=== PATIENT | male | born 1960 | race African-American/Black ===

== ENCOUNTER 2016-11-19 13:28 | Inpatient (IN) | payer BC, OTHER ==
[~2016-11-19] VITALS: Ht 182.9 cm; Wt 114.8 kg
--- NOTE | ~2016-11-19 | CATHLAB ---
[facility] [place] [address] INVASIVE PROCEDURE REPORT Name: DAMIAN SWAIN JR Room #: 213-P [facility]#: [id number] Admission: 11/19/16 Attend Phys: Eliel Puri, Discharge: 11/21/16 Date of : 56 Date of Service: 11/23/16 1329 Report #: [id number] THIS REPORT FOR: //name// APPROVED REPORT Patient Details The patient is a 56 year-old male Procedure Narrative The Right Groin^ was infiltrated with 1% Lidocaine subcutaneous anesthesia. A PINNACLE 6FR Sheath #[id number] sheath was inserted into the RFA^. Coronary angiography was performed using coronary diagnostic catheters. The right coronary system was accessed and visualized with a EDRC catheter. The left coronary system was accessed and visualized with a JL4 catheter. The left ventricle was accessed and visualized with a PIGTAIL catheter. The patient tolerated the procedure well and there were no complications associated with the procedure. Intraoperative Conscious Sedation Sedation start time: 8.19 Case end Time: 8.47 Fentanyl 50.0 mcg Versed 2.0 mg Fluoro Time: 5.04 minutes Dose: 1191 mGy Contrast Type and Amount: Omnipaque 150 ml Hemodynamics The aortic pressure is 124/75 mmHg with a mean of 95 mmHg. The left ventricular pressure is 151/10 mmHg with a mean of mmHg. The left ventricular end diastolic pressure is 35 mmHg. There was no gradient across the aortic valve upon pullback. Pullback from the left ventricle to the aorta revealed no gradient across the aortic valve. PCI Technique Lesion Percutaneous coronary intervention was performed on the mid right coronary artery. A LAUNCHER 6FR 3D #[id number] Guide Catheter was used to engage the RCA ostium. A Luge Wire .014 x 182CM #[id number] Interventional Guidewire was used to cross the lesion. BALLOON DILATION A Balloon catheter Sprinter OTW 2.5 x 12 #[id number] was inserted and inflated up to 12.00atm for 22seconds. Additional Inflation: 12.00atm [facility] [address] [place] [address] INVASIVE PROCEDURE REPORT Name: BRYNNDAMIAN Room #: 213-P [facility]#: [id number] Admission: 11/19/16 Attend Phys: Eliel Puri, Discharge: 11/21/16 Date of : 56 Date of Service: 11/23/16 1329 Report #: [id number] for 19seconds. STENT DEPLOYMENT A drug-eluting stent RESOLUTE OTW 2.75 X 12 #[id number] was inserted and inflated up to 12.00atm for 22seconds. Conclusion #1 successful PTCA stent drug-eluting mid RCA 90% lesion tandem to 0% with a 25 resolute drug-eluting stent postdilated 2.7 mm in size no residual EDER grade 3 flow #2 left main free of disease #3 LAD extends around apex with an eccentric 3040% proximal lesion otherwise well-preserved vessel #4 circumflex marginal nondominant but large tortuous with a 50% proximal lesion giving rise to large OM system distally #5 normal left ventricular size and systolic function of 55-60% #6 abdominal aorta is intact no aneurysm single renal arteries and iliac mild plaquing. Recommendations and plan aggressive risk factor modification will need dual antiplatelet therapy 6-12 months. No lifting for 48 hours no MRI or dental work for 3 months. Tub Jacuzzi her leg for a week. Follow-up will be 3 months in my office <ELECTRONICALLY SIGNED> By: Eliel Puri MD, FACC 11/23/16 1329 28 28 Eliel Puri MD, FACC /INF
--- NOTE | ~2016-11-19 | D ---
[facility] [place] [address] DISCHARGE SUMMARY Name: DAMIAN SWAIN Room #: 213-P [facility] IN M.R.#: [id number] Admission: 11/19/16 Attend Phys: Eliel Puri MD, Discharge: Date of : 56 Report #: [id number] THIS REPORT FOR: //name// CC: Eliel Monge MD [facility] COURSE: The patient is a 56-year-old male who had a brief episode of chest pain and then subsequently had an elevated troponin up to 5-6 range, consistent with a non-STEMI, but no acute changes. He was taken to the catheterization lab, which revealed patency of his prior circumflex stents and mild LAD disease. He had a high-grade tandem lesions in the mid and mid distal RCA. I successfully dilated and stented, which was a 2.75 x 22 Resolute drug-eluting stent across both lesions in the mid RCA, which was a dominant vessel and postdilated that up to 3.1 mm in size, yielding 0% residual EDER grade 3 flow. LV function was normal. Heparin, Integrilin and Effient were utilized. He tolerated it well, resolution of subtle EKG changes, no chest pain. He is feeling well, he is up and ambulating without any issues. Creatinine is 1.0, potassium 4.1. Troponin was 3.3 this morning, of course initially marcin to 5.99. Lipids are favorable. His LDL was 62. His total cholesterol 125. 125. H and H is 14 and 41.4. He will be discharged on aspirin, full aspirin and Effient and then after a month, we will decrease to a baby aspirin with the Effient, so he can only take Livalo, Livalo 4 mg, Protonix, Bystolic 5, Zetia 10, lisinopril 10. No lifting for 48 hours. No lying in tub, Jacuzzi or Castillo for a week. We will follow up in 3 months in my office. DISCHARGE DIAGNOSES: 1. Non-ST elevation myocardial infarction. 2. Coronary artery disease with successful PTCA stent of high-grade mid RCA lesions and circumflex stents patent. LAD, mildly diseased, preserved LV function. 3. Hypertension. 4. Hypercholesterolemia. 5. Mild ischemic cardiomyopathy with a very limited inferior lateral infarct from 2009. I should clarify circumflex stents were placed in 2009 and 2012. Thank you for asking me to assist in the care of this patient. By: 0742 0928 Eliel Puri MD, FACC /nt
--- NOTE | ~2016-11-19 | 2DMMODE ---
[facility] [address] [place] [address] 2 D/M-MODE ECHOCARDIOGRAM Name: DAMIAN SWAIN Room #: 213-P [facility] IN M.R.#: [id number] Admission: 11/19/16 Attend Phys: Eliel Puri, Discharge: Date of : 56 Date of Service: 11/20/16 1123 Report #: [id number] THIS REPORT FOR: //name// APPROVED REPORT Study performed: 11/20/2016 09:28:43 EXAM: Comprehensive 2D, Doppler, and color-flow Echocardiogram Patient Location: [facility] Room #: 213 Status: routine Other Information Study Quality: Adequate Technically limited study due to limited mobility. Patient status post cath. Indications Chest pain; Status post heart cath with stent placement. Hx: [place], stents, ISCM 2D Dimensions RVDd: 37.87 mm LVEF(%): 46.21 (>50%) IVSd: 13.23 (7-11mm) LVOT Diam: 20.80 (18-24mm) LVDd: 49.48 mm PWd: 9.71 (7-11mm) Ascending Ao: 33.39 (22-36mm) LVDs: 38.03 (25-40mm) Aortic Root: 33.49 mm Minor's LVEF: 46.21 % Volumes Left Atrial Volume (Systole) Single Plane 4CH: 52.79 mL Single Plane 2CH: 70.29 mL LA ESV Index: 28.00 mL/m2 Aortic Valve AoV Peak Bishop.: 1.45 m/s AO Peak Gr.: 8.38 mmHg LVOT Max P.61 mmHg LVOT Max V: 1.07 m/s LOYD Vmax: 2.52 cm2 Mitral Valve E/A Ratio: 1.4 MV Decel. Time: 178.65 ms MV E Max Bishop.: 1.11 m/s [facility] [place] [address] 2 D/M-MODE ECHOCARDIOGRAM Name: DAMIAN SAWIN Room #: 213-P [facility] IN ..#: [id number] Admission: 11/19/16 Attend Phys: Eliel Puri, Discharge: Date of : 56 Date of Service: 11/20/16 1123 Report #: [id number] A Bishop.: 0.81 m/s MV PHT: 51.81 ms IVRT: 69.20 ms Pulmonary Valve PV Peak Bishop.: 1.39 m/s PV Peak Gr.: 7.75 mmHg Pulmonary Vein P Vein S: 0.36 m/s P Vein A: 0.30 m/s P Vein D: 0.34 m/s P Vein A Dur.: 129.2 msec P Vein S/D Ratio: 1.06 Tricuspid Valve TR Peak Bishop.: 1.91 m/s TR Peak Gr.: 14.65 mmHg Left Ventricle The left ventricle is normal size. Mild septal hypertrophy. Left ventricular systolic function is mildly decreased. LVEF is 45%. Moderate diastolic dysfunction is present (pseudonormal filling). Right Ventricle The right ventricle is normal size. The right ventricular systolic function is normal. Atria The left atrium size is normal. The right atrium size is normal. Aortic Valve The aortic valve is normal in structure. Trace aortic regurgitation. There is no aortic valvular stenosis. Mitral Valve The mitral valve is normal in structure. Trace mitral regurgitation. No evidence of mitral valve stenosis. Tricuspid Valve The tricuspid valve is normal in structure. Trace tricuspid regurgitation. Estimated PAP is 15mmHg plus the right atrial pressure. Pulmonic Valve The pulmonary valve is normal in structure. Trace pulmonic regurgitation. [address] [address] 2 D/M-MODE ECHOCARDIOGRAM Name: DAMIAN SWAIN JR Room #: 213-P [facility] IN .#: [id number] Admission: 11/19/16 Attend Phys: Eliel Puri, Discharge: Date of : 56 Date of Service: 11/20/16 1123 Report #: [id number] Great Vessels The aortic root is normal in size. The ascending aorta is normal in size. IVC is not well visualized. Pericardium There is no pericardial effusion. <Conclusion> The left ventricle is normal size. Left ventricular systolic function is mildly decreased. LVEF is 45%. The aortic valve is normal in structure. Trace aortic regurgitation. The mitral valve is normal in structure. Trace mitral regurgitation. The tricuspid valve is normal in structure. Trace tricuspid regurgitation. Estimated PAP is 15mmHg plus the right atrial pressure. The pulmonary valve is normal in structure. Trace pulmonic regurgitation. <ELECTRONICALLY SIGNED> By: Fausto Dickerson MD 11/20/16 1123 1123 112 Fausto Dickerson MD /INF
--- NOTE | ~2016-11-19 | EKG ---
[address] [address] ELECTROCARDIOGRAM REPORT Name: DAMIAN SWAIN Room #: 213-[facility] IN M.R.#: [id number] Admission: 11/19/16 Attend Phys: Eliel Puri MD, Discharge: 11/21/16 Date of : 56 Report #: [id number] THIS REPORT FOR: //name// [facility] Test Date: 2016-11-20 Test Time: 10:19:59 Pat Name: DAMIAN SWAIN Department: Room: 213 P Gender: M Pattern Developer: Emilio THAKKAR : 1960 Requested By: Eliel Puri Order Number: [id number] MD: Sean Menchaca Measurements Intervals [place] Rate: 54 P: 36 HI: 162 QRS: -14 QRSD: 83 T: -6 QT: 428 QTc: 406 Interpretive Statements Sinus bradycardia Borderline ST elevation, anterolateral leads Compared to ECG 11/20/2016 06:12:22 No significant change was found Electronically Signed On 11-22-2016 7:07:34 CDT by Sean Menchaca [email or web address] <ELECTRONICALLY SIGNED> By: Sean Menchaca MD, [facility] 11/22/16 0707 1019 1019 Sean Menchaca MD, [facility] /EPI
--- NOTE | ~2016-11-19 | EKG ---
[place] [address] [facility] [facility] [place] [address] ELECTROCARDIOGRAM REPORT Name: DAMIAN SWAIN Room #: 213-[facility] IN M.R.#: [id number] Admission: 11/19/16 Attend Phys: Eliel Puri MD, Discharge: 11/21/16 Date of : 56 Report #: [id number] THIS REPORT FOR: //name// [facility] Test Date: 2016-11-21 Test Time: 06:39:02 Pat Name: DAMIAN BERRIOSER Department: Room: 213 Gender: M Cashier Ticket Selling: Gr : 1960 Requested By: Eliel Puri Order Number: [id number] MD: Sean Menchaca Measurements Intervals [place] Rate: 55 P: 0 ND: 155 QRS: -14 QRSD: 96 T: -6 QT: 412 QTc: 394 Interpretive Statements Sinus rhythm Low voltage, precordial leads Borderline T abnormalities Baseline wander in lead(s) V2 Compared to ECG 11/20/2016 06:12:22 Repolarization abnormality no longer present Electronically Signed On 11-22-2016 7:46:11 CDT by Sean Menchaca [email or web address] <ELECTRONICALLY SIGNED> By: Sean Menchaca MD, [facility] 11/22/16 0746 0639 0639 Sean Menchaca MD, [facility] /EPI
--- NOTE | ~2016-11-19 | EKG ---
[place] [address] [address] [address] ELECTROCARDIOGRAM REPORT Name: DAMIAN SWAIN Room #: 213-P [facility] M.R.#: [id number] Admission: 11/19/16 Attend Phys: Eliel Puri MD, Discharge: Date of : 56 Report #: [id number] THIS REPORT FOR: //name// [facility] Test Date: 2016-11-20 Test Time: 06:12:22 Pat Name: DAMIAN SWAIN Department: Room: 213 P Gender: M Maintenance Director: aye : 1960 Requested By: Elizabeth Reeves Order Number: [id number] MD: Sean Menchaca Measurements Intervals [place] Rate: 58 P: -7 TX: 165 QRS: -7 QRSD: 83 T: 3 QT: 421 QTc: 414 Interpretive Statements Sinus rhythm Minimal ST elevation, anterior leads Baseline wander in lead(s) V2 No previous ECG available for comparison Electronically Signed On 11-20-2016 9:29:17 CDT by Sean Menchaca [email or web address] <ELECTRONICALLY SIGNED> By: Sena Menchaca MD, [facility] 11/20/1629 1 1 Sean Menchaca MD, [facility] /EPI
--- NOTE | ~2016-11-19 | EKG ---
[place] [address] [facility] [employer] [place] [address] ELECTROCARDIOGRAM REPORT Name: DAMIAN SWAIN Room #: 213-P [facility] M.R.#: [id number] Admission: 11/19/16 Attend Phys: Eliel Puri MD, Discharge: Date of : 56 Report #: [id number] THIS REPORT FOR: //name// [facility] ED Test Date: 2016-11-19 Test Time: 13:38:47 Pat Name: DAMIAN SWAIN Department: Room: 213 Gender: M Hands Parter: Aspen PIKE : 1960 Requested By: Elizabeth Reeves Order Number: [id number] MD: Sean Menchaca Measurements Intervals [place] Rate: 64 P: 7 NV: 149 QRS: -20 QRSD: 89 T: -6 QT: 386 QTc: 399 Interpretive Statements Sinus rhythm Borderline T abnormalities, inferior leads No previous ECG available for comparison Electronically Signed On 11-20-2016 9:26:36 CDT by Sean Menchaca [email or web address] <ELECTRONICALLY SIGNED> By: Sean Menchaca MD, [facility] 11/20/16 0926 1338 37 Sean Menchaca MD, FACC /EPI
--- NOTE | ~2016-11-19 | H ---
[facility] [place] [address] HISTORY AND PHYSICAL Name: BRYNNDAMIAN NAPIER Room #: 213-P [facility] Sparkle [facility]#: [id number] Admission: 11/19/16 Attend Phys: Eliel Puri MD, Discharge: Date of : 56 Report #: [id number] THIS REPORT FOR: //name// CC: Eliel Monge DATE OF SERVICE: 11/19/2016 HISTORY OF PRESENT ILLNESS: The patient is a 56-year-old male well known to myself, stable coronary disease and had stents placed in 2009 into the right coronary artery and then subsequently in 2012 I placed stents to the circumflex artery with a 40% right mild LAD disease. He has done well and followed up regularly in the office. He has lost weight, he has been exercising. He remains active. Today, he comes in with chest pain, which he had. 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 While he was standing in the water had significant chest discomfort, initially started in the epigastric area and became slightly diaphoretic but no shortness of breath. It was 5-6/10, worse and then subsequently it resolved after his had called the ambulance and he had an aspirin. It went away on its own. He has had no history of this. He exercises early as last couple days ago without any change in exercise tolerance. There are no associated EKG changes. Unfortunately the first troponin was 0.04 and the 2nd was 0.47, although is still indeterminate, but questioning why this would have risen. Pain free as I stated. He feels well. He was improved with the GI cocktail. He has been compliant with his medications which have been aspirin, lisinopril 10, Bystolic 5, Zetia 10, Livalo 4. He is intolerant of all statins except Livalo and Protonix 40, which he may have missed this morning and glucosamine. He no longer takes Effient. PAST MEDICAL HISTORY: Positive for coronary artery disease with stents in 2009 and 2012, rotator cuff surgery, right knee surgery, bronchitis, hypertension, hypercholesterolemia and mild ischemic cardiomyopathy with limited infarct back in 2009. ALLERGIES: No known drug allergies. SOCIAL HISTORY: He works. He is . No current alcohol or tobacco. Social alcohol user. FAMILY HISTORY: Strongly positive. Father had an infarct in his 50s. PHYSICAL EXAMINATION: VITAL SIGNS: Blood pressure 130/62, pulse 70. HEENT: Eyes reveal xanthelasmas. Pharynx is clear. NECK: Shows preserved upstrokes without JVD or bruits. LUNGS: Clear. CARDIOVASCULAR: Regular rate and rhythm, S1, S2. [facility] [address] [place] [address] HISTORY AND PHYSICAL Name: BRYNNDAMIAN Room #: 213-P [facility] Sparkle M.R.#: [id number] Admission: 11/19/16 Attend Phys: Eliel Puri MD, Discharge: Date of : 56 Report #: [id number] ABDOMEN: Slightly tender in the midepigastric area. EXTREMITIES: Reveal no edema. Distal pulses were intact. MUSCULOSKELETAL: No gross joint deformity. NEUROLOGIC: Intact. ASSESSMENT: 1. Chest pain with an equivocal troponin. 2. Coronary artery disease with history of right coronary artery and circumflex stents, last intervention in 2012. 3. I should clarify it looks like his initial stents were placed in the mid circumflex. These were stents and these were widely patent. There was a distal circumflex stent placed in 2012. The right coronary artery had a 40-50% mid vessel lesion. The left anterior descending had mild disease. This all dates back to April of 2012. Hypertension, hypercholesterolemia, mild ischemic cardiomyopathy. 4. Suspected reflux, GI etiology. RECOMMENDATIONS AND PLAN: We will continue with Protonix, bland diet. We will repeat troponin and EKG in the a.m. If it would be higher, then would proceed to the clay processing labourer to delineate anatomy. If not would consider stress echo. I believe his last stress test was March in the office, but I will confirm in the morning. He is pain free and comfortable. There have been no anginal type symptoms leading up to this. He has been exercising. It does not seem likely that this would be cardiac, but may need objective testing if the troponins do not further elevate. Discussed with the patient and . By: 2131 3049 Eliel Puri MD, FACC /nt
[~2016-11-19 13:28] MED LIST: ADULT LOW DOSE81 MG PO; ASPIRIN325 PO; BYSTOLIC 5 MG5 M1 PO; EFFIENT10 MG PO; FISH OIL 1,0001 EAC5 PO; GARLIC OIL1 EACH PO; GLUCOSAMINE &1 EAC1 PO; IBUPROFEN 200200 M1 PO; LIPITOR80 MG PO; LIVALO4 MG PO; LOPRESSOR25 PO; MULTIPLE VITAM1 EAC3 PO; NORCO 5-325 TA1 EACH PO; PANTOPRAZOLE SO40 MG PO; VIT C 500 MG-E500 MG PO; VITAMIN C + RO500 MG PO; VYTORIN 10-801 EACH PO; ZESTRIL10 MG PO; ZETIA10 MG PO
[2016-11-19 14:01] LABS: ABSOLUTE NEUTROPHILS 4.4 thou/uL (1.4-8.2); BASOPHILS 0.7 % (0.0-2.0); EOSINOPHILS 1.6 % (0.0-3.0); HEMATOCRIT 42.8 % (42.0-52.0); LYMPHOCYTES 18.9 % (24.0-44.0); MCH 31.4 pg (26.0-34.0); MCV 89.7 fL (80.0-100.0); PLATELET COUNT 239 thou/uL (150-400); POLYS 72.8 % (36.0-66.0); RBC 4.77 mil/uL (4.50-6.00); RDW 13.5 % (10.5-14.5); WBC 6.1 thou/uL (4.0-11.0)
[2016-11-19 14:02] LABS: MANUAL DIFF NO
[2016-11-19 14:07] LABS: ANION GAP 8 mmol/L (7-16); BUN 11 mg/dL (7-18); CALCIUM 9.4 mg/dL (8.5-10.1); CHLORIDE 105 mmol/L (98-107); CO2 27 mmol/L (21-32); CREATININE 1.2 mg/dL (0.7-1.3); GLUCOSE 139 mg/dL (74-106); POTASSIUM 4.5 mmol/L (3.5-5.1); SODIUM 140 mmol/L (136-145)
[2016-11-19 14:14] LABS: ALBUMIN 4.1 g/dL (3.4-5.0); ALKALINE PHOSPHATASE 69 U/L (46-116); SGOT 21 U/L (15-37); SGPT 27 U/L (30-65); TOTAL BILIRUBIN 0.4 mg/dL (<0.1-1.0); TROPONIN-I < 0.04 ng/mL (<0.04-0.07)
[2016-11-19 18:46] VITALS: BP 121/61
[2016-11-19 19:49] VITALS: BP 130/63
[2016-11-19 23:29] VITALS: BP 119/59
[2016-11-20] VITALS (10 sets, daily range): BP systolic 101–130; BP diastolic 54–72
[2016-11-20 07:25] LABS: CHOLESTEROL 125 mg/dL (<200); HDL CHOLESTEROL 38 mg/dL (>40); LDL CHOLESTEROL 62 mg/dL (<100); TC:HDL 3.3 Ratio (Not establshd); TRIGLYCERIDE 125 mg/dL (<150); VLDL 25 mg/dL (<40)
[2016-11-21 03:45] LABS: HEMATOCRIT 41.4 % (42.0-52.0); HEMOGLOBIN 14.7 gm/dL (14.0-18.0); MCH 31.6 pg (26.0-34.0); MCHC 35.5 g/dL (28.0-37.0); RBC 4.66 mil/uL (4.50-6.00); RDW 13.6 % (10.5-14.5); WBC 6.9 thou/uL (4.0-11.0)
[2016-11-21 03:48] VITALS: BP 116/61
[2016-11-21 03:59] LABS: CALCIUM 8.7 mg/dL (8.5-10.1); POTASSIUM 4.1 mmol/L (3.5-5.1)
[2016-11-21 04:03] LABS: TROPONIN-I 3.31 ng/mL (<0.04-0.07)
[2016-11-21] MEDS ORDERED: ASPIRIN325 PO (07:38)
[2016-11-21 07:40] VITALS: BP 116/69
[2016-11-21 09:05] VITALS: BP 116/69
== END 2016-11-21 10:40 | disposition home or self-care (01) | DRG 247 ==
LOC: ER 13:28 → EROBS 16:23 → 2N 16:23
PROVIDERS: Internal Medicine Cardiovascular Disease; Physician Assistant
PROC: B2151ZZ Fluoroscopy of Left Heart using Low Osmolar Contrast (ICD-10-PCS; principal; 2016-11-21)
PROC: 4A023N7 Measurement of Cardiac Sampling and Pressure, Left Heart, Percutaneous Approach (ICD-10-PCS; principal; 2016-11-21)
PROC: B2111ZZ Fluoroscopy of Multiple Coronary Arteries using Low Osmolar Contrast (ICD-10-PCS; principal; 2016-11-21)
PROC: 027034Z Dilation of Coronary Artery, One Artery with Drug-eluting Intraluminal Device, Percutaneous Approach (ICD-10-PCS; principal; 2016-11-21)
DX: I21.4 Non-ST elevation (NSTEMI) myocardial infarction (principal); I25.10 Atherosclerotic heart disease of native coronary artery without angina pectoris; I10 Essential (primary) hypertension; I25.5 Ischemic cardiomyopathy; E78.00 Pure hypercholesterolemia, unspecified; Z95.5 Presence of coronary angioplasty implant and graft; Z79.899 Other long term (current) drug therapy; Z82.49 Family history of ischemic heart disease and other diseases of the circulatory system
CPT/HCPCS: 10081

== ENCOUNTER 2017-03-11 05:14 | Emergency (ER) | payer BC, OTHER ==
[~2017-03-11] VITALS: Ht 182.9 cm; Wt 114.3 kg
[2017-03-11] MEDS ORDERED: MEN'S DAILY FO1 EAC1 PO (05:23)
[2017-03-11 06:19] LABS: URINE BILIRUBIN NEGATIVE (Negative); URINE BLOOD NEGATIVE (Negative); URINE COLOR YELLOW; URINE GLUCOSE-RANDOM* NEGATIVE (Negative); URINE KETONES NEGATIVE (Negative); URINE LEUKOCYTES-REFLEX NEGATIVE (Negative); URINE PROTEIN (DIPSTICK) NEGATIVE (Negative); URINE SPECIFIC GRAVITY <= 1.005 (1.003-1.035); URINE UROBILINOGEN 0.2 E.U./dl (0.2-1.0)
[2017-03-11 06:41] LABS: ABSOLUTE NEUTROPHILS 5.3 thou/uL (1.4-8.2); BASOPHILS 0.8 % (0.0-2.0); EOSINOPHILS 4.2 % (0.0-3.0); HEMATOCRIT 44.6 % (42.0-52.0); HEMOGLOBIN 15.3 gm/dL (14.0-18.0); LYMPHOCYTES 19.3 % (24.0-44.0); MCH 30.8 pg (26.0-34.0); MCHC 34.2 g/dL (28.0-37.0); MONOCYTES 5.6 % (1.0-8.0); PLATELET COUNT 203 thou/uL (150-400); POLYS 70.1 % (36.0-66.0); RBC 4.96 mil/uL (4.50-6.00); RDW 13.3 % (10.5-14.5); WBC 7.6 thou/uL (4.0-11.0)
[2017-03-11 06:47] LABS: MANUAL DIFF NO
[2017-03-11 06:49] LABS: CALCIUM 8.7 mg/dL (8.5-10.1); CREATININE 1.1 mg/dL (0.7-1.3); POTASSIUM 3.5 mmol/L (3.5-5.1)
[2017-03-11 06:55] LABS: ALBUMIN 3.6 g/dL (3.4-5.0); TOTAL BILIRUBIN 0.4 mg/dL (<0.1-1.0); TOTAL PROTEIN 7.3 g/dL (6.4-8.2)
[2017-03-11] MEDS ORDERED: BENTYL 20 MG TA20 M1 PO (07:14)
[2017-03-11 07:19] VITALS: BP 114/60
== END 2017-03-11 07:25 | disposition home or self-care (01) ==
LOC: ER 05:14
PROVIDERS: Emergency Medicine
DX: R10.9 Unspecified abdominal pain (principal); R19.7 Diarrhea, unspecified; F10.99 Alcohol use, unspecified with unspecified alcohol-induced disorder; J40 Bronchitis, not specified as acute or chronic; I25.2 Old myocardial infarction; E78.00 Pure hypercholesterolemia, unspecified

== ENCOUNTER 2018-03-30 17:38 | Emergency (ER) | payer BC, OTHER ==
[~2018-03-30] VITALS: Ht 182.9 cm; Wt 117.9 kg
[~2018-03-30 17:38] MED LIST changes: +BENTYL 20 MG TA20 M1 PO; +MEN'S DAILY FO1 EAC1 PO
[2018-03-30 19:08] VITALS: BP 121/63
[2018-03-30] MEDS ORDERED: VITAMIN B12 PO (19:13)
[2018-03-30] MEDS ORDERED: VITAMIN D400 UNIT PO (19:14)
[2018-03-30] MEDS ORDERED: MOBIC7.5 MG PO (20:26)
== END 2018-03-30 20:45 | disposition home or self-care (01) ==
LOC: ER 17:38
DX: S89.91XA Unspecified injury of right lower leg, initial encounter (principal); M25.461 Effusion, right knee; I25.10 Atherosclerotic heart disease of native coronary artery without angina pectoris; E78.00 Pure hypercholesterolemia, unspecified; I25.5 Ischemic cardiomyopathy; I25.2 Old myocardial infarction; X58.XXXA Exposure to other specified factors, initial encounter; Y93.89 Activity, other specified; Y92.89 Other specified places as the place of occurrence of the external cause; Y99.8 Other external cause status